=== PATIENT | female | born 1985 | race Caucasian/White ===

== ENCOUNTER 2024-08-03 12:34 | Outpatient (CLI) | payer BC, SELFPAY | END 2024-08-03 12:35 | disposition home or self-care (01) | LOC: NFLDREF 08-08 08:23 | PROVIDERS: Visit Provider Family Medicine | DX: N30.00 Acute cystitis without hematuria (principal); B96.0 Mycoplasma pneumoniae [M. pneumoniae] as the cause of diseases classified elsewhere | CPT/HCPCS: 87086; 87186 ==